=== PATIENT | female | born 2000 | race African-American/Black ===

== ENCOUNTER 2018-04-22 08:36 | Emergency (ER) | payer OTHER ==
[~2018-04-22] VITALS: Ht 165.1 cm; Wt 63.5 kg
--- NOTE | 2018-04-22 09:07 | PHYS DOC ---
Past Medical History Past Medical History: No Pertinent History Past Surgical History: No Surgical History Alcohol Use: None Drug Use: None Adult General Chief Complaint Chief Complaint: ABDOMINAL PAIN HPI HPI Patient is a 18 year old female who presents with abdominal pain that awoke her this morning at 7:00. She began having nausea and vomited once but the vomit was water. Patient states she does wear control patch is changed out weekly. Patient states she can't remember the last time she had a bowel movement. Patient states she just finished up her period on this past Monday. Patient states the pain feels crampy and sharp and is umbilical that goes to the left side. She rates her pain 910. Patient states she's never felt pain like this before. She has no known drug allergies. Review of Systems Review of Systems Constitutional: Denies fever or chills [] Eyes: Denies change in visual acuity, redness, or eye pain [] HENT: Denies nasal congestion or sore throat [] Respiratory: Denies cough or shortness of breath [] Cardiovascular: No additional information not addressed in HPI [] GI: mid and left lower abdominal pain, nausea, vomiting, denies bloody stools or diarrhea [] : Denies dysuria or hematuria [] Musculoskeletal: Denies back pain or joint pain [] Integument: Denies rash or skin lesions [] Neurologic: Denies headache, focal weakness or sensory changes [] All other systems were reviewed and found to be within normal limits, except as documented in this note. Current Medications Current Medications Current Medications Medications (Trade) Dose Ordered Sig/Eddie Start Time Stop Time Status Last Admin Dose Admin Fentanyl Citrate (Fentanyl 2ml Vial) 50 mcg 1X ONCE 04/22/18 09:00 04/22/18 09:01 DC 04/22/18 09:28 50 MCG Info (CONTRAST GIVEN -- Rx MONITORING) 1 each PRN DAILY PRN 04/22/18 09:45 04/24/18 09:44 Iohexol (Omnipaque 300 Mg/ml) 75 ml 1X ONCE 04/22/18 09:45 04/22/18 09:46 DC 04/22/18 09:45 75 ML Ondansetron HCl (Zofran) 4 mg 1X ONCE 04/22/18 09:00 04/22/18 09:01 DC 04/22/18 09:25 4 MG Sodium Chloride 1,000 ml @ 1,000 mls/hr 1X ONCE 04/22/18 09:00 04/22/18 09:59 DC 04/22/18 09:31 1,000 MLS/HR Allergies Allergies Allergies Coded Allergies Type Severity Reaction Last Updated Verified No Known Drug Allergies 10/30/14 No Physical Exam Physical Exam Constitutional: Well developed, well nourished, no acute distress, non-toxic appearance. [] HENT: Normocephalic, atraumatic, bilateral external ears normal, oropharynx moist, no oral exudates, nose normal. [] Eyes: PERRLA, EOMI, conjunctiva normal, no discharge. [] Neck: Normal range of motion, no tenderness, supple, no stridor. [] Cardiovascular:Heart rate regular rhythm, no murmur [] Lungs & Thorax: Bilateral breath sounds clear to auscultation [] Abdomen: Bowel sounds normal, soft, low mid and left tenderness, no masses, no pulsatile masses. [] Skin: Warm, dry, no erythema, no rash. [] Back: No tenderness, no CVA tenderness. [] Extremities: No tenderness, no cyanosis, no clubbing, ROM intact, no edema. [] Neurologic: Alert and oriented X 3, normal motor function, normal sensory function, no focal deficits noted. [] Psychologic: Affect normal, judgement normal, mood normal. [] Current Patient Data Vital Signs Vital Signs Date Time Temp Pulse Resp B/P (MAP) Pulse Ox O2 Delivery O2 Flow Rate FiO2 04/22/18 09:37 97.7 70 14 115/62 (79) 100 Room Air 97.7 Lab Values Laboratory Tests Test 04/22/18 09:09 04/22/18 09:10 04/22/18 09:30 04/22/18 10:15 POC Urine HCG, Qualitative Hcg negative (Negative) Urine Collection Type Void Urine Color Yellow Urine Clarity Clear Urine pH 6.0 Urine Specific Fitzwilliam 1.020 Urine Protein Negative mg/dL (NEG-TRACE) Urine Glucose (UA) Negative mg/dL (NEG) Urine Ketones (Stick) Negative mg/dL (NEG) Urine Blood Large (NEG) Urine Nitrite Negative (NEG) Urine Bilirubin Negative (NEG) Urine Urobilinogen Dipstick 0.2 mg/dL (0.2 mg/dL) Urine Leukocyte Esterase Negative (NEG) Urine RBC Occ /HPF (0-2) Urine WBC 5-10 /HPF (0-4) Urine Squamous Epithelial Cells Few /LPF Urine Bacteria Few /HPF (0-FEW) Urine Mucus Slight /LPF White Blood Count 7.2 x10^3/uL (4.0-11.0) Red Blood Count 4.79 x10^6/uL (3.50-5.40) Hemoglobin 13.2 g/dL (12.0-15.5) Hematocrit 39.3 % (36.0-47.0) Mean Corpuscular Volume 82 fL (79-100) Mean Corpuscular Hemoglobin 28 pg (25-35) Mean Corpuscular Hemoglobin Concent 34 g/dL (31-37) Red Cell Distribution Width 13.1 % (11.5-14.5) Platelet Count 352 x10^3/uL (140-400) Neutrophils (%) (Auto) 62 % (31-73) Lymphocytes (%) (Auto) 26 % (24-48) Monocytes (%) (Auto) 8 % (0-9) Eosinophils (%) (Auto) 3 % (0-3) Basophils (%) (Auto) 2 % (0-3) Neutrophils # (Auto) 4.5 x10^3uL (1.8-7.7) Lymphocytes # (Auto) 1.9 x10^3/uL (1.0-4.8) Monocytes # (Auto) 0.5 x10^3/uL (0.0-1.1) Eosinophils # (Auto) 0.2 x10^3/uL (0.0-0.7) Basophils # (Auto) 0.1 x10^3/uL (0.0-0.2) Sodium Level 142 mmol/L (136-145) Potassium Level 4.3 mmol/L (3.5-5.1) Chloride Level 107 mmol/L (98-107) Carbon Dioxide Level 27 mmol/L (21-32) Anion Gap 8 (6-14) Blood Urea Nitrogen 10 mg/dL (7-20) Creatinine 0.9 mg/dL (0.6-1.0) Estimated GFR (Cockcroft-Gault) 96.6 BUN/Creatinine Ratio 11 (6-20) Glucose Level 112 mg/dL (70-99) H Calcium Level 8.8 mg/dL (8.5-10.1) Total Bilirubin 0.4 mg/dL (0.2-1.0) Aspartate Amino Transferase (AST) 11 U/L (15-37) L Alanine Aminotransferase (ALT) 10 U/L (14-59) L Alkaline Phosphatase 57 U/L (46-116) Total Protein 7.5 g/dL (6.4-8.2) Albumin 3.2 g/dL (3.4-5.0) L Albumin/Globulin Ratio 0.7 (1.0-1.7) L Lipase 70 U/L (73-393) L Laboratory Tests 04/22/18 09:30 Laboratory Tests 04/22/18 10:15 EKG EKG [] Radiology/Procedures Radiology/Procedures [] Impressions: [facility] [address] [place] [address] IMAGING REPORT Signed PATIENT: CHANCE SLAUGHTER ACCOUNT: [id number] : 2000 LOCATION: ER AGE: 18 SEX: F EXAM STATUS: REG ER ORD. PHYSICIAN: LINUS CASTILLO APRN REASON: abdominal pain PROCEDURE: CT ABD PELV W/ IV CONTRST ONLY Examination: CT of the abdomen pelvis with IV contrast HISTORY: History of abdominal pain COMPARISON: None available TECHNIQUE: Axial CT images of the abdomen pelvis were performed with IV contrast. Coronal and sagittal reformats are performed. Exposure: One or more of the following individualized dose reduction techniques were utilized for this examination: 1. Automated exposure control 2. Adjustment of the mA and/or kV according to patient size 3. Use of iterative reconstruction technique FINDINGS: The bibasilar lungs are clear. No evidence of free air identified in the abdomen. The visualized liver, spleen, adrenals grossly appears unremarkable. The gallbladder is mildly distended. Stomach is mildly distended. The visualized pancreas grossly appears unremarkable. The small bowel is nondilated. The appendix is normal. Feces and gas noted in the colon. The bilateral kidneys enhance symmetrically. The caliber of the aorta grossly appears unremarkable. No evidence of lytic bony destructive lesion. IMPRESSION: No acute intra-abdominal findings. Electronically signed by: Chintan Alcala MD (04/22/2018 11:14 AM) [facility] DICTATED and SIGNED BY: CHINTAN ALCALA MD DATE: 04/22/18 1290 [facility] [address] [place] [address] IMAGING REPORT Signed PATIENT: CHANCE SLAUGHTER ACCOUNT: [id number] : 2000 LOCATION: ER AGE: 18 SEX: F EXAM STATUS: REG ER ORD. PHYSICIAN: LINUS CASTILLO APRN REASON: PELVIC PAIN PROCEDURE: PELVIS W/TV Examination: Ultrasound pelvis HISTORY: History of pelvic pain COMPARISON: None available FINDINGS: The uterus measures 7.6 x 2.8 x 4.0 cm. The right ovary measures 3.2 x 1.8 x 2.1 cm. Left ovary measures 3.6 x 1.5 x 1.9 cm. The endometrium measures 7.1 mm in thickness. Blood flow identified in the right and left ovaries. No significant free fluid identified in the pelvis. IMPRESSION: Unremarkable visualized exam. Electronically signed by: Chintan Alcala MD (04/22/2018 12:22 PM) [facility] DICTATED and SIGNED BY: CHINTAN ALCALA MD DATE: 04/22/18 1220 Course & Med Decision Making Course & Med Decision Making Patient is a 18 year old female who presents with abdominal pain that awoke her this morning at 7:00. She began having nausea and vomited once but the vomit was water. Patient states she does wear control patch is changed out weekly. Patient states she can't remember the last time she had a bowel movement. Patient states she just finished up her period on this past Monday. Patient states the pain feels crampy and sharp and is umbilical that goes to the left side. She rates her pain 910. Patient states she's never felt pain like this before. She has no known drug allergies. Denies any abnormal vaginal discharge, or itching . Patient states she is sexually active. Patient's abdomen is soft but has tenderness at mid lower and left lower abdomen. There are no masses felt. Lungs are clear to auscultation all lobes. Heart rate regular without murmur. Afebrile. Patient denies dysuria. CT ABD PELV shows no acute findings. Blood work is unremarkable. Patient does not have any infection of urine. Afebrile. Pelvic ultrasound shows no acute findings. Patient is likely constipated especially states that she cannot remember the last time she had a bowel movement. She states she has no pain and is feeling much better. Patient states she does not have any sexually transmitted diseases and does not want me to do a pelvic exam. The mother is stating that she needs to leave and she's been here for a long time. Patient is being discharged follow-up with her primary care. She can also take over-the- counter stool softeners or laxatives such didn't have a bowel movement and drink plenty of fluids. [] Dragon Disclaimer Dragon Disclaimer This electronic medical record was generated, in whole or in part, using a voice recognition dictation system. Departure Departure Impression: Primary Impression: Abdominal pain Disposition: HOME, SELF-CARE Condition: STABLE Referrals: NO PCP (PCP) Patient Instructions: Abdominal Pain (Nonspecific), Constipation, Adult Additional Instructions: Follow-up with primary care. Take some laxatives or stool softeners. Drink plenty of fluids. If abdominal pain intensifies or he began having abnormal discharge or fever please return to the ED or your primary care provider. Problem Qualifiers Primary Impression: Abdominal pain Abdominal location: left lower quadrant Qualified Codes: R10.32 - Left lower quadrant pain LINUS CASTILLO APRN Apr 22, 2018 09:07
[2018-04-22] MEDS: ONDANSETRON PF 4 MG/2 ML VIAL. IV ONE (09:25)
[2018-04-22] MEDS: fentaNYL PF VIAL 100 MCG/2 ML VIAL IV ONE (09:28)
[2018-04-22] MEDS: IV NORMAL SALINE 1000ML BAG 1,000 ML IV ONE (09:31)
[2018-04-22] MEDS ORDERED: CONTRAST GIVEN. MC PRN (09:45)
[2018-04-22] MEDS: IOHEXOL 300 MG/ML 100ML VIAL. IV ONE (09:45)
[2018-04-22 09:47] LABS: BILIRUBIN,URINE NEGATIVE (NEG); CLARITY,URINE CLEAR; COLOR,URINE YELLOW; NITRITE,URINE NEGATIVE (NEG); PROTEIN,URINE NEGATIVE (NEG-TRACE); UROBILINOGEN,URINE 0.2 mg/dL (0.2 mg/dL)
[2018-04-22 10:09] LABS: BASO # 0.1 x10^3/uL (0.0-0.2); BASO % 2 % (0-3); EOS # 0.2 x10^3/uL (0.0-0.7); EOS % 3 % (0-3); HEMATOCRIT 39.3 % (36.0-47.0); HEMOGLOBIN 13.2 g/dL (12.0-15.5); LYMPH # 1.9 x10^3/uL (1.0-4.8); LYMPH % 26 % (24-48); MEAN CORPUSCULAR HEMOGLOBIN 28 pg (25-35); MEAN CORPUSCULAR HGB CONC 34 g/dL (31-37); MEAN CORPUSCULAR VOLUME 82 fL (79-100); MONO # 0.5 x10^3/uL (0.0-1.1); MONO % 8 % (0-9); NEUT # 4.5 x10^3uL (1.8-7.7); NEUT % 62 % (31-73); PLATELET COUNT 352 x10^3/uL (140-400); RED BLOOD COUNT 4.79 x10^6/uL (3.50-5.40); RED CELL DISTRIBUTION WIDTH 13.1 % (11.5-14.5); WHITE BLOOD COUNT 7.2 x10^3/uL (4.0-11.0)
[2018-04-22 10:26] LABS: SQUAMOUS EPITHELIAL CELL,UR FEW /LPF
[2018-04-22 10:27] LABS: BACTERIA,URINE FEW /HPF (0-FEW); RBC,URINE OCC /HPF (0-2)
[2018-04-22 10:34] LABS: CALCIUM 8.8 mg/dL (8.5-10.1); CREATININE 0.9 mg/dL (0.6-1.0); GFR 96.6; POTASSIUM 4.3 mmol/L (3.5-5.1)
[2018-04-22 10:40] LABS: ALBUMIN 3.2 g/dL (3.4-5.0); ALBUMIN/GLOBULIN RATIO 0.7 (1.0-1.7); TOTAL BILIRUBIN 0.4 mg/dL (0.2-1.0); TOTAL PROTEIN 7.5 g/dL (6.4-8.2)
--- NOTE | 2018-04-22 11:18 | RAD ---
Examination: CT of the abdomen pelvis with IV contrast HISTORY: History of abdominal pain COMPARISON: None available TECHNIQUE: Axial CT images of the abdomen pelvis were performed with IV contrast. Coronal and sagittal reformats are performed. Exposure: One or more of the following individualized dose reduction techniques were utilized for this examination: 1. Automated exposure control 2. Adjustment of the mA and/or kV according to patient size 3. Use of iterative reconstruction technique FINDINGS: The bibasilar lungs are clear. No evidence of free air identified in the abdomen. The visualized liver, spleen, adrenals grossly appears unremarkable. The gallbladder is mildly distended. Stomach is mildly distended. The visualized pancreas grossly appears unremarkable. The small bowel is nondilated. The appendix is normal. Feces and gas noted in the colon. The bilateral kidneys enhance symmetrically. The caliber of the aorta grossly appears unremarkable. No evidence of lytic bony destructive lesion. IMPRESSION: No acute intra-abdominal findings. Electronically signed by: Chintan Alcala MD (04/22/2018 11:14 AM) [facility]
--- NOTE | 2018-04-22 12:26 | RAD ---
Examination: Ultrasound pelvis HISTORY: History of pelvic pain COMPARISON: None available FINDINGS: The uterus measures 7.6 x 2.8 x 4.0 cm. The right ovary measures 3.2 x 1.8 x 2.1 cm. Left ovary measures 3.6 x 1.5 x 1.9 cm. The endometrium measures 7.1 mm in thickness. Blood flow identified in the right and left ovaries. No significant free fluid identified in the pelvis. IMPRESSION: Unremarkable visualized exam. Electronically signed by: Chintan Alcala MD (04/22/2018 12:22 PM) [facility]
[2018-04-22 12:55] VITALS: BP 100/56
== END 2018-04-22 12:58 | disposition home or self-care (01) ==
LOC: ER 08:36
DX: R10.32 Left lower quadrant pain (principal); R11.2 Nausea with vomiting, unspecified; R10.33 Periumbilical pain
CPT/HCPCS: 36415; 74177; 76830; 76856; 80053; 81001; 81025; 83690; 85025; 87086; 96361; 96374; 96375; 99284; J2405; J3010; J7030; Q9967

== ENCOUNTER 2019-03-03 10:36 | Emergency (ER) | payer SELFPAY ==
[~2019-03-03] VITALS: Ht 162.6 cm; Wt 56.7 kg
[2019-03-03 10:45] VITALS: BP 117/65
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
--- NOTE | 2019-03-03 11:58 | RAD ---
CT HEAD AND CERVICAL SPINE WO Date: 03/03/2019 11:07 AM Clinical Indication: Comparison: None. Technique: 5 mm axial tomographic images were obtained of the head without contrast. These were viewed on brain and bone windows. CT imaging of the cervical spine was performed without contrast. Coronal and sagittal reformatted images were performed. One or more of the following dose reduction techniques were utilized: Automated exposure control (AEC), Adjustment of mA and/or kV according to patient size, Use of iterative reconstruction technique such as ASiR, CT scan done according to ALARA and image gently/image wisely HEAD FINDINGS: The brain parenchyma is normal in attenuation. No intra- or extra-axial mass or fluid collection. No acute hemorrhage. The ventricles are normal in size, shape, and morphology. The thibodeaux-white matter junction is normal. The basilar cisterns are patent. The visualized paranasal sinuses are normal. The visualized portions of the orbits and globes are normal. The mastoid air cells are clear. No aggressive osseous lesion or fracture. CERVICAL SPINE FINDINGS: Straightening of the cervical lordosis. No acute fracture. No aggressive lytic or blastic osseous lesion. The intervertebral disc heights are maintained. No high-grade spinal canal stenosis or neural foraminal narrowing. The thyroid gland is normal. No cervical lymphadenopathy. The visualized aerodigestive tract is unremarkable. The visualized lung apices are clear. IMPRESSION: 1. No acute intracranial process. 2. No acute osseous abnormality of the cervical spine. Electronically signed by: Aldair Baxter MD (03/03/2019 11:56 AM) [facility]
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
[2019-03-03] MEDS ORDERED: NAPR500T8 PO (12:36)
[2019-03-03] MEDS ORDERED: CYCL10TA2 PO (12:36)
== END 2019-03-03 12:45 | disposition home or self-care (01) ==
LOC: ER 10:36
DX: S13.9XXA Sprain of joints and ligaments of unspecified parts of neck, initial encounter (principal); S00.03XA Contusion of scalp, initial encounter; M54.6 Pain in thoracic spine; V49.59XA Passenger injured in collision with other motor vehicles in traffic accident, initial encounter; Y93.89 Activity, other specified; Y92.488 Other paved roadways as the place of occurrence of the external cause; Y99.8 Other external cause status
CPT/HCPCS: 70450; 72125; 72128; 99284-25